=== PATIENT | female | born 1940 | race Caucasian/White ===

== ENCOUNTER 2017-04-16 08:43 | Inpatient (IN) ==
[2017-04-16] MEDS ORDERED: ONDANSETRON 4 MG/2 ML VIAL IV STA (09:48)
[2017-04-16] MEDS ORDERED: SODIUM CHLORIDE 0.9% 1,000 ML IV STA (09:48)
[2017-04-16] MEDS ORDERED: HYDROmorphone 2 MG/1 ML VIAL IV STA (09:48)
[2017-04-16] MEDS ORDERED: HYDROmorphone 2 MG/1 ML VIAL ONE (09:55)
[2017-04-16] MEDS ORDERED: ONDANSETRON 4 MG/2 ML VIAL ONE (09:55)
[2017-04-16 11:27] LABS: Basophils # 0.1 10*3/uL (0.0-0.2); Eosinophils # 0.4 10*3/uL (0.0-0.87); Eosinophils % 5.1 % (0.00-10.9); Hematocrit 40.8 VOL% (35.7-47.0); Hemoglobin 13.8 GM/DL (12.0-16.0); Immature Granulocytes % 0.6 %; Immature Granulocytes Absolute 0.04 #; Lymphocytes # 2.2 10*3/uL (1.4-4.0); Lymphocytes % 30.8 % (21.3-54.2); Mean Corpuscular HGB Conc 33.8 GM/DL (32-36); Mean Corpuscular Hemoglobin 30 PG (27-34); Mean Corpuscular Volume 89.7 FL (87-102); Monocytes # 0.6 10*3/uL (0.11-0.8); Monocytes % 8.2 % (1.7-12.7); Neutrophils # 3.8 10*3/uL (1.4-7.4); Neutrophils % 54.3 % (38.7-73.9); Platelet Count 274 T/CUMM (130-400); Red Blood Count 4.55 MC/CUMM (3.8-5.5); Red Cell Distribution Width 13.6 % (9.3-17.3); White Blood Count 7.1 T/CUMM (4-12)
[2017-04-16 11:40] LABS: Bilirubin,Total 0.7 MG/DL (0.2-1.0); Calcium 9.6 MG/DL (8.5-10.1); Osmolality,Calculated 277.7 MOS/KG (273-304); Potassium 3.7 MMOL/L (3.5-5.1); Total Protein 7.5 G/DL (6.4-8.3)
[2017-04-16] MEDS ORDERED: ONDANSETRON 4 MG/2 ML VIAL IV PRN (12:46)
[2017-04-16] MEDS ORDERED: GLUCAGON 1 MG VIAL IM PRN (12:51)
[2017-04-16] MEDS ORDERED: DEXTROSE 50% 25 GM/50 ML VIAL IV PRN (12:51)
[2017-04-16] MEDS: SODIUM CHLORIDE 0.9% 1,000 ML IV SCH ×3 (14:23→22:06)
[2017-04-16 15:14] LABS: Apearance,Urine CLEAR (Clear); Bilirubin,Urine Negative (Negative); Blood, Urine Negative (Negative); Glucose,Urine (UA) Negative (Negative); Ketones,Urine Negative (Negative); Mucus,Urine Occasional /LPF (Occasional); Nitrite,Urine Negative (Negative); Protein,Urine Negative; RBC,Urine <1 /HPF (0-4); Urine Color Yellow (Yellow); Urine Specific Gravity 1.008 (1.001-1.035); Urine Urobilinogen < 2.0 EU/DL (0.2-1.0); WBC,Urine 4 /HPF (0-6)
[2017-04-16] MEDS: HYDROmorphone 2 MG/1 ML VIAL IV PRN ×2 (16:35→22:04)
[2017-04-16] MEDS: INSULIN LISPRO 100 UNIT/ML SUBCUT SCH ×2 (16:35→20:52)
[2017-04-16] MEDS ORDERED: LEVOFLOXACIN INJ 500 MG in PREMIX 1 EACH IV ONE (17:30)
[2017-04-17] MEDS: SODIUM CHLORIDE 0.9% 1,000 ML IV SCH ×4 (03:30→16:58)
[2017-04-17 05:28] LABS: Basophils % 0.7 % (0.0-0.8); Eosinophils # 0.2 10*3/uL (0.0-0.87); Eosinophils % 3.6 % (0.00-10.9); Hematocrit 36.2 VOL% (35.7-47.0); Hemoglobin 11.8 GM/DL (12.0-16.0); Immature Granulocytes % 0.8 %; Immature Granulocytes Absolute 0.05 #; Lymphocytes # 1.4 10*3/uL (1.4-4.0); Lymphocytes % 22.9 % (21.3-54.2); Mean Corpuscular HGB Conc 32.6 GM/DL (32-36); Mean Corpuscular Hemoglobin 30 PG (27-34); Mean Corpuscular Volume 91.6 FL (87-102); Mean Platelet Volume 11.4 FL (9.6-12.0); Monocytes # 0.4 10*3/uL (0.11-0.8); Monocytes % 6.1 % (1.7-12.7); Neutrophils % 65.9 % (38.7-73.9); Platelet Count 225 T/CUMM (130-400); Red Blood Count 3.95 MC/CUMM (3.8-5.5); Red Cell Distribution Width 13.5 % (9.3-17.3); White Blood Count 6.1 T/CUMM (4-12)
[2017-04-17 05:49] LABS: PT Patient Result 10.4 SECS
[2017-04-17 06:15] LABS: Risk Ratio 2.45; VLDL CHOLESTEROL 21.6 MG/DL
[2017-04-17 06:16] LABS: Albumin 3.1 G/DL (3.4-5.0); Bilirubin,Total 0.8 MG/DL (0.2-1.0); Calcium 7.9 MG/DL (8.5-10.1); Magnesium 1.7 MG/DL (1.8-2.4); Osmolality,Calculated 278.3 MOS/KG (273-304); Potassium 4.2 MMOL/L (3.5-5.1); Total Protein 5.3 G/DL (6.4-8.3)
[2017-04-17] MEDS: INSULIN LISPRO 100 UNIT/ML SUBCUT SCH ×4 (08:05→21:08)
[2017-04-17] MEDS: HYDROmorphone 2 MG/1 ML VIAL IV PRN (08:08)
[2017-04-17] MEDS ORDERED: PANTOPRAZOLE 40 MG VIAL IV SCH (09:00)
[2017-04-17] MEDS ORDERED: MAGNESIUM SULF RIDER 2 GM in PREMIX 1 EACH IV PRN (10:19)
[2017-04-17] MEDS: LINACLOTIDE 145 MCG CAPSULE PO SCH (11:55)
[2017-04-17] MEDS: traMADol 50 MG TABLET PO PRN ×2 (13:32→21:48)
[2017-04-17] MEDS: LEVOFLOXACIN INJ 250 MG in PREMIX 1 EACH IV SCH (16:55)
[2017-04-17] MEDS: PANTOPRAZOLE 40 MG VIAL IV SCH (20:56)
[2017-04-18] MEDS: SODIUM CHLORIDE 0.9% 1,000 ML IV SCH ×4 (00:19→15:00)
[2017-04-18] MEDS: traMADol 50 MG TABLET PO PRN (03:48)
[2017-04-18 06:20] LABS: Basophils % 0.3 % (0.0-0.8); Eosinophils # 0.3 10*3/uL (0.0-0.87); Eosinophils % 4.4 % (0.00-10.9); Hemoglobin 10.8 GM/DL (12.0-16.0); Immature Granulocytes % 0.6 %; Immature Granulocytes Absolute 0.04 #; Lymphocytes # 1.5 10*3/uL (1.4-4.0); Lymphocytes % 21.7 % (21.3-54.2); Mean Corpuscular HGB Conc 32.7 GM/DL (32-36); Mean Corpuscular Hemoglobin 30 PG (27-34); Mean Corpuscular Volume 91.4 FL (87-102); Mean Platelet Volume 11.6 FL (9.6-12.0); Monocytes # 0.6 10*3/uL (0.11-0.8); Neutrophils # 4.5 10*3/uL (1.4-7.4); Platelet Count 208 T/CUMM (130-400); Red Blood Count 3.61 MC/CUMM (3.8-5.5); Red Cell Distribution Width 13.7 % (9.3-17.3)
[2017-04-18 06:52] LABS: Bilirubin,Total 0.8 MG/DL (0.2-1.0); Magnesium 1.8 MG/DL (1.8-2.4); Osmolality,Calculated 278.3 MOS/KG (273-304); Potassium 4.2 MMOL/L (3.5-5.1); Total Protein 5.3 G/DL (6.4-8.3)
[2017-04-18] MEDS ORDERED: INFLUENZA VIRUS VACCINE 0.5 ML SYRINGE IM ONE (09:00)
[2017-04-18] MEDS: LINACLOTIDE 145 MCG CAPSULE PO SCH (09:16)
[2017-04-18] MEDS: PANTOPRAZOLE 40 MG VIAL IV SCH ×2 (09:17→20:46)
[2017-04-18] MEDS: INSULIN LISPRO 100 UNIT/ML SUBCUT SCH ×4 (09:17→20:47)
[2017-04-18] MEDS ORDERED: BUTALBITAL/ACETAMIN/CAFFEINE 50-325-40 MG TABLET PO PRN ×2 (14:30)
[2017-04-18] MEDS: LEVOFLOXACIN INJ 250 MG in PREMIX 1 EACH IV SCH (18:42)
[2017-04-18] MEDS: CIPROFLOXACIN INJ 400 MG in PREMIX 1 EACH IV SCH (18:43)
[2017-04-18] MEDS: ROSUVASTATIN 10 MG TABLET PO SCH (20:46)
[2017-04-18] MEDS: MAGNESIUM CHLORIDE 64 MG TABLET PO SCH (20:46)
[2017-04-19] MEDS: SODIUM CHLORIDE 0.9% 1,000 ML IV SCH ×3 (09:26→23:51)
[2017-04-19] MEDS: CIPROFLOXACIN INJ 400 MG in PREMIX 1 EACH IV SCH ×2 (09:27→17:09)
[2017-04-19] MEDS: INSULIN LISPRO 100 UNIT/ML SUBCUT SCH ×4 (09:27→21:09)
[2017-04-19] MEDS ORDERED: PROPOFOL 200 MG/20 ML VIAL IV ONE (11:42)
[2017-04-19] MEDS ORDERED: LIDOCAINE 1% 5 ML VIAL ONE (11:42)
[2017-04-19] MEDS: PANTOPRAZOLE 40 MG VIAL IV SCH ×2 (12:02→21:06)
[2017-04-19] MEDS: LINACLOTIDE 145 MCG CAPSULE PO SCH (12:02)
[2017-04-19] MEDS: VALSARTAN/HCTZ 160-12.5 MG TABLET PO SCH (12:02)
[2017-04-19] MEDS: MAGNESIUM CHLORIDE 64 MG TABLET PO SCH ×2 (12:03→21:06)
[2017-04-19] MEDS ORDERED: MIDAZOLAM 2 MG/2 ML VIAL ONE (13:30)
[2017-04-19] MEDS: ROSUVASTATIN 10 MG TABLET PO SCH (21:06)
[2017-04-20] MEDS: CIPROFLOXACIN INJ 400 MG in PREMIX 1 EACH IV SCH (05:20)
[2017-04-20] MEDS: INSULIN LISPRO 100 UNIT/ML SUBCUT SCH ×2 (08:57→12:10)
[2017-04-20] MEDS: PANTOPRAZOLE 40 MG VIAL IV SCH (08:57)
[2017-04-20] MEDS: MAGNESIUM CHLORIDE 64 MG TABLET PO SCH (08:57)
[2017-04-20] MEDS: VALSARTAN/HCTZ 160-12.5 MG TABLET PO SCH (08:57)
[2017-04-20] MEDS: LINACLOTIDE 145 MCG CAPSULE PO SCH (09:00)
[2017-04-20 12:03] VITALS: BP 154/66
== END 2017-04-20 15:20 | disposition home or self-care (01) | DRG 439 ==
LOC: N.ED 08:43 → SUATTDRO 12:03 → N.EDINP 12:03 → N.5E 13:35
PROVIDERS: ADMIT Hospitalist; ATTEND Hospitalist

== ENCOUNTER 2017-09-21 05:35 | Inpatient (IN) ==
[2017-09-15 15:26] LABS: Basophils # 0.1 10*3/uL (0.0-0.2); Basophils % 0.8 % (0.0-0.8); Eosinophils # 0.3 10*3/uL (0.0-0.87); Eosinophils % 4.4 % (0.00-10.9); Hematocrit 42.2 VOL% (35.7-47.0); Hemoglobin 13.5 GM/DL (12.0-16.0); Immature Granulocytes % 0.6 %; Immature Granulocytes Absolute 0.04 #; Lymphocytes # 1.7 10*3/uL (1.4-4.0); Lymphocytes % 25.9 % (21.3-54.2); Mean Corpuscular Hemoglobin 29 PG (27-34); Mean Corpuscular Volume 90.8 FL (87-102); Mean Platelet Volume 11.5 FL (9.6-12.0); Monocytes # 0.6 10*3/uL (0.11-0.8); Monocytes % 8.6 % (1.7-12.7); Neutrophils # 3.8 10*3/uL (1.4-7.4); Neutrophils % 59.7 % (38.7-73.9); Platelet Count 278 T/CUMM (130-400); Red Blood Count 4.65 MC/CUMM (3.8-5.5); Red Cell Distribution Width 14.3 % (9.3-17.3); White Blood Count 6.4 T/CUMM (4-12)
[2017-09-15 16:00] LABS: Albumin 4.1 G/DL (3.4-5.0); Bilirubin,Total 0.8 MG/DL (0.2-1.0); Osmolality,Calculated 284.8 MOS/KG (273-304); Potassium 4.8 MMOL/L (3.5-5.1)
[2017-09-21] MEDS ORDERED: LEVOFLOXACIN 500 MG TABLET PO ONE (06:00)
[2017-09-21] MEDS ORDERED: GENTAMICIN INJ 120 MG in PREMIX 1 EACH IV ONE (06:00)
[2017-09-21] MEDS ORDERED: cefTRIAXone 1,000 MG VIAL ONE ×2 (06:45→06:48)
[2017-09-21] MEDS ORDERED: cefTRIAXone 1,000 MG in SODIUM CHLORIDE 0.9% 100 ML IV ONE (06:48)
[2017-09-21] MEDS: LACTATED RINGERS 1,000 ML IV SCH (06:54)
[2017-09-21] MEDS ORDERED: cefTRIAXone 1,000 MG in SYRINGE 1 EACH IV ONE (07:00)
[2017-09-21 08:28] LABS: Apearance,Urine CLEAR (Clear); Bilirubin,Urine Negative (Negative); Blood, Urine Negative (Negative); Glucose,Urine (UA) Negative (Negative); Ketones,Urine Negative (Negative); Nitrite,Urine Negative (Negative); Protein,Urine Negative; RBC,Urine <1 /HPF (0-4); Urine Specific Gravity 1.004 (1.001-1.035); Urine Urobilinogen < 2.0 EU/DL (0.2-1.0); WBC,Urine <1 /HPF (0-6)
[2017-09-21 08:31] LABS: Urine Color Amber (Yellow)
[2017-09-21] MEDS: MORPHINE 10 MG/1 ML VIAL IV PRN ×3 (11:40→12:05)
[2017-09-21] MEDS ORDERED: MORPHINE 10 MG/1 ML VIAL ONE (11:41)
[2017-09-21] MEDS ORDERED: PROMETHAZINE INJ 25 MG in SODIUM CHLORIDE 0.9% 50 ML IV PRN (11:49)
[2017-09-21] MEDS ORDERED: NALOXONE 0.4 MG/ML VIAL IV PRN (12:17)
[2017-09-21] MEDS ORDERED: SEVOFLURANE 1 UNIT/15 MINUTE INH ONE (12:24)
[2017-09-21] MEDS ORDERED: PROPOFOL 200 MG/20 ML VIAL IV ONE (12:24)
[2017-09-21] MEDS ORDERED: MIDAZOLAM 2 MG/2 ML VIAL ONE (12:25)
[2017-09-21] MEDS ORDERED: ePHEDrine 50 MG/ML AMP ONE (12:25)
[2017-09-21] MEDS ORDERED: LACTATED RINGERS 1,000 ML IV ONE (12:25)
[2017-09-21] MEDS ORDERED: ONDANSETRON 4 MG/2 ML VIAL ONE (12:25)
[2017-09-21] MEDS ORDERED: fentaNYL 100 MCG/2 ML VIAL ONE (12:25)
[2017-09-21] MEDS ORDERED: PHENYLEPHRINE 1 MG/10 ML SYRINGE IV ONE (12:25)
[2017-09-21] MEDS ORDERED: ROCURONIUM 100 MG/10 ML VIAL IV ONE (12:25)
[2017-09-21] MEDS: MORPHINE PCA 30 MG/30 ML SYRINGE IV SCH (12:30)
[2017-09-21 12:35] LABS: Basophils % 0.3 % (0.0-0.8); Eosinophils # 0.1 10*3/uL (0.0-0.87); Hematocrit 38.7 VOL% (35.7-47.0); Hemoglobin 12.9 GM/DL (12.0-16.0); Immature Granulocytes % 0.8 %; Immature Granulocytes Absolute 0.08 #; Lymphocytes # 1.3 10*3/uL (1.4-4.0); Lymphocytes % 12.8 % (21.3-54.2); Mean Corpuscular HGB Conc 33.3 GM/DL (32-36); Mean Corpuscular Hemoglobin 30 PG (27-34); Mean Corpuscular Volume 89.2 FL (87-102); Monocytes # 0.4 10*3/uL (0.11-0.8); Monocytes % 4.2 % (1.7-12.7); Neutrophils # 8.4 10*3/uL (1.4-7.4); Neutrophils % 80.9 % (38.7-73.9); Platelet Count 221 T/CUMM (130-400); Red Blood Count 4.34 MC/CUMM (3.8-5.5); Red Cell Distribution Width 13.6 % (9.3-17.3); White Blood Count 10.3 T/CUMM (4-12)
[2017-09-21 13:04] LABS: Calcium 8.7 MG/DL (8.5-10.1); Osmolality,Calculated 268.8 MOS/KG (273-304); Potassium 4.2 MMOL/L (3.5-5.1)
[2017-09-21] MEDS ORDERED: GLUCAGON 1 MG VIAL IM PRN (13:32)
[2017-09-21] MEDS ORDERED: diphenhydrAMINE 50 MG/1 ML VIAL IV PRN (13:32)
[2017-09-21] MEDS ORDERED: DEXTROSE 50% 25 GM/50 ML VIAL IV PRN (13:32)
[2017-09-21] MEDS ORDERED: ALBUTEROL/IPRATROPIUM 3 ML NEB RESP TX PRN (13:32)
[2017-09-21] MEDS: SODIUM CHLORIDE 0.9% 1,000 ML IV SCH ×2 (14:03→23:32)
[2017-09-21] MEDS ORDERED: MAGNESIUM SULF RIDER 2 GM in PREMIX 1 EACH IV PRN (14:59)
[2017-09-21] MEDS ORDERED: MAGNESIUM SULF RIDER 4 GM in PREMIX 1 EACH IV PRN (14:59)
[2017-09-21] MEDS: FAMOTIDINE 20 MG/2 ML VIAL IV SCH (15:49)
[2017-09-21] MEDS: INSULIN REGULAR 100 UNIT/ML SUBCUT SCH ×2 (16:38→22:13)
[2017-09-21] MEDS: ROSUVASTATIN 10 MG TABLET PO SCH (22:13)
[2017-09-22] MEDS: SODIUM CHLORIDE 0.9% 1,000 ML IV SCH ×5 (05:34→22:37)
[2017-09-22 06:01] LABS: Basophils % 0.2 % (0.0-0.8); Eosinophils # 0.1 10*3/uL (0.0-0.87); Eosinophils % 0.8 % (0.00-10.9); Hematocrit 36.4 VOL% (35.7-47.0); Hemoglobin 12.1 GM/DL (12.0-16.0); Immature Granulocytes % 0.8 %; Immature Granulocytes Absolute 0.07 #; Lymphocytes # 1.3 10*3/uL (1.4-4.0); Lymphocytes % 14.2 % (21.3-54.2); Mean Corpuscular HGB Conc 33.2 GM/DL (32-36); Mean Corpuscular Hemoglobin 30 PG (27-34); Mean Corpuscular Volume 89.4 FL (87-102); Mean Platelet Volume 11.9 FL (9.6-12.0); Monocytes # 0.6 10*3/uL (0.11-0.8); Monocytes % 6.6 % (1.7-12.7); Neutrophils # 6.9 10*3/uL (1.4-7.4); Neutrophils % 77.4 % (38.7-73.9); Platelet Count 234 T/CUMM (130-400); Red Blood Count 4.07 MC/CUMM (3.8-5.5); Red Cell Distribution Width 13.8 % (9.3-17.3)
[2017-09-22] MEDS: LACTATED RINGERS 1,000 ML IV SCH (06:22)
[2017-09-22 06:32] LABS: Osmolality,Calculated 269.5 MOS/KG (273-304); Potassium 4.1 MMOL/L (3.5-5.1)
[2017-09-22 06:35] LABS: Calcium 8.2 MG/DL (8.5-10.1); Osmolality,Calculated 271.4 MOS/KG (273-304); Potassium 4.3 MMOL/L (3.5-5.1)
[2017-09-22 06:38] LABS: Risk Ratio 1.98
[2017-09-22] MEDS: ONDANSETRON 4 MG/2 ML VIAL IV PRN (06:43)
[2017-09-22] MEDS ORDERED: cefTRIAXone 1,000 MG in SYRINGE 1 EACH IV SCH (09:00)
[2017-09-22] MEDS: VALSARTAN/HCTZ 160-12.5 MG TABLET PO SCH (09:34)
[2017-09-22] MEDS: CARVEDILOL 3.125 MG TABLET PO SCH (09:34)
[2017-09-22] MEDS: SIMETHICONE CHEW 80 MG TABLET PO PRN ×2 (09:46→22:48)
[2017-09-22] MEDS ORDERED: ALVIMOPAN 12 MG CAPSULE PO SCH (11:00)
[2017-09-22] MEDS: INSULIN REGULAR 100 UNIT/ML SUBCUT SCH ×4 (12:36→22:36)
[2017-09-22] MEDS: DOCUSATE SODIUM 100 MG CAPSULE PO SCH ×2 (12:45→22:34)
[2017-09-22] MEDS: POLYETHYLENE GLYCOL POWDER 17 GM PACK PO SCH ×2 (12:47→22:33)
[2017-09-22] MEDS: ALBUTEROL/IPRATROPIUM 3 ML NEB RESP TX SCH ×2 (13:54→19:47)
[2017-09-22] MEDS: FAMOTIDINE 20 MG/2 ML VIAL IV SCH (14:07)
[2017-09-22] MEDS ORDERED: ALUMINUM/MAGNES/SIMETH MAX STR 30 ML UDCUP PO PRN (15:44)
[2017-09-22] MEDS: ROSUVASTATIN 10 MG TABLET PO SCH (22:33)
[2017-09-22] MEDS: MORPHINE PCA 30 MG/30 ML SYRINGE IV SCH (22:34)
[2017-09-23] MEDS: ALBUTEROL/IPRATROPIUM 3 ML NEB RESP TX SCH ×4 (00:26→19:29)
[2017-09-23] MEDS: INSULIN REGULAR 100 UNIT/ML SUBCUT SCH ×4 (09:09→22:32)
[2017-09-23] MEDS: VALSARTAN/HCTZ 160-12.5 MG TABLET PO SCH (09:16)
[2017-09-23] MEDS: CARVEDILOL 3.125 MG TABLET PO SCH (09:16)
[2017-09-23] MEDS: DOCUSATE SODIUM 100 MG CAPSULE PO SCH ×2 (09:16→22:16)
[2017-09-23] MEDS: ACETAMINOPHEN 325 MG TABLET PO SCH ×3 (09:16→22:16)
[2017-09-23] MEDS: POLYETHYLENE GLYCOL POWDER 17 GM PACK PO SCH ×2 (09:17→22:17)
[2017-09-23] MEDS ORDERED: HYDROCORTISONE 2.5% CREAM 30 GM TUBE TOP PRN (12:45)
[2017-09-23] MEDS ORDERED: cefTRIAXone 1,000 MG in SODIUM CHLORIDE 0.9% 100 ML IV ONE (12:57)
[2017-09-23] MEDS: FAMOTIDINE 20 MG/2 ML VIAL IV SCH (13:50)
[2017-09-23] MEDS: MEPERIDINE 25 MG/1 ML VIAL IV PRN (21:56)
[2017-09-23] MEDS: ONDANSETRON 4 MG/2 ML VIAL IV PRN (21:56)
[2017-09-23] MEDS: ROSUVASTATIN 10 MG TABLET PO SCH (22:15)
[2017-09-24] MEDS: ALBUTEROL/IPRATROPIUM 3 ML NEB RESP TX SCH ×2 (01:09→07:40)
[2017-09-24] MEDS: ONDANSETRON 4 MG/2 ML VIAL IV PRN (04:59)
[2017-09-24] MEDS: ACETAMINOPHEN 325 MG TABLET PO SCH ×2 (04:59→11:04)
[2017-09-24] MEDS: MEPERIDINE 25 MG/1 ML VIAL IV PRN ×2 (05:00→09:06)
[2017-09-24 06:42] LABS: Basophils % 0.4 % (0.0-0.8); Eosinophils # 0.3 10*3/uL (0.0-0.87); Eosinophils % 4.5 % (0.00-10.9); Hematocrit 31.4 VOL% (35.7-47.0); Immature Granulocytes % 0.6 %; Immature Granulocytes Absolute 0.04 #; Lymphocytes # 1.4 10*3/uL (1.4-4.0); Lymphocytes % 19.9 % (21.3-54.2); Mean Corpuscular HGB Conc 32.2 GM/DL (32-36); Mean Corpuscular Hemoglobin 30 PG (27-34); Mean Corpuscular Volume 92.4 FL (87-102); Mean Platelet Volume 11.4 FL (9.6-12.0); Monocytes # 0.7 10*3/uL (0.11-0.8); Monocytes % 9.4 % (1.7-12.7); Neutrophils # 4.5 10*3/uL (1.4-7.4); Neutrophils % 65.2 % (38.7-73.9); Platelet Count 211 T/CUMM (130-400); Red Cell Distribution Width 14.2 % (9.3-17.3); White Blood Count 6.9 T/CUMM (4-12)
[2017-09-24 06:55] LABS: Hemoglobin 10.1 GM/DL (12.0-16.0)
[2017-09-24 07:17] LABS: Calcium 7.8 MG/DL (8.5-10.1); Osmolality,Calculated 280.5 MOS/KG (273-304); Potassium 4.1 MMOL/L (3.5-5.1)
[2017-09-24] MEDS ORDERED: SODIUM CHLORIDE 0.9% 1,000 ML IV SCH (08:30)
[2017-09-24] MEDS: INSULIN REGULAR 100 UNIT/ML SUBCUT SCH ×2 (09:06→12:01)
[2017-09-24] MEDS: DOCUSATE SODIUM 100 MG CAPSULE PO SCH (11:03)
[2017-09-24] MEDS: VALSARTAN/HCTZ 160-12.5 MG TABLET PO SCH (11:03)
[2017-09-24] MEDS: CARVEDILOL 3.125 MG TABLET PO SCH (11:03)
[2017-09-24] MEDS: POLYETHYLENE GLYCOL POWDER 17 GM PACK PO SCH (11:04)
[2017-09-24 13:02] VITALS: BP 114/55
[2017-09-24] MEDS: FAMOTIDINE 20 MG/2 ML VIAL IV SCH (14:05)
== END 2017-09-24 15:00 | disposition home or self-care, planned readmission (81) | DRG 694 ==
LOC: N.RAD 05:35 → N.SDSINP 05:40 → N.5E 08:14
PROVIDERS: ADMIT Surgery; ATTEND Surgery

== ENCOUNTER 2017-09-27 12:46 | Inpatient (IN) ==
[2017-09-27] MEDS ORDERED: ONDANSETRON 4 MG/2 ML VIAL IV PRN (13:51)
[2017-09-27] MEDS ORDERED: MORPHINE 2 MG/1 ML SYRINGE IV PRN (13:51)
[2017-09-27] MEDS ORDERED: diphenhydrAMINE 50 MG/1 ML VIAL IV PRN (13:51)
[2017-09-27] MEDS ORDERED: HYDROCORTISONE 2.5% CREAM 30 GM TUBE TOP PRN (13:51)
[2017-09-27] MEDS ORDERED: cefTRIAXone 1,000 MG in SYRINGE 1 EACH IV ONE (13:51)
[2017-09-27] MEDS ORDERED: GLUCAGON 1 MG VIAL IM PRN (13:51)
[2017-09-27] MEDS ORDERED: DEXTROSE 50% 25 GM/50 ML VIAL IV PRN (13:51)
[2017-09-27] MEDS ORDERED: MORPHINE 10 MG/1 ML VIAL IV PRN (14:00)
[2017-09-27 15:04] LABS: Basophils # 0.1 10*3/uL (0.0-0.2); Basophils % 0.6 % (0.0-0.8); Eosinophils # 0.3 10*3/uL (0.0-0.87); Eosinophils % 4.1 % (0.00-10.9); Hemoglobin 12.8 GM/DL (12.0-16.0); Immature Granulocytes % 0.6 %; Immature Granulocytes Absolute 0.05 #; Lymphocytes # 1.6 10*3/uL (1.4-4.0); Lymphocytes % 20.7 % (21.3-54.2); Mean Corpuscular HGB Conc 32.8 GM/DL (32-36); Mean Corpuscular Hemoglobin 30 PG (27-34); Mean Corpuscular Volume 90.1 FL (87-102); Monocytes # 0.5 10*3/uL (0.11-0.8); Monocytes % 6.7 % (1.7-12.7); Neutrophils # 5.2 10*3/uL (1.4-7.4); Neutrophils % 67.3 % (38.7-73.9); Platelet Count 339 T/CUMM (130-400); Red Blood Count 4.33 MC/CUMM (3.8-5.5); Red Cell Distribution Width 13.7 % (9.3-17.3); White Blood Count 7.8 T/CUMM (4-12)
[2017-09-27 15:19] LABS: Calcium 9.1 MG/DL (8.5-10.1); Osmolality,Calculated 271.1 MOS/KG (273-304); Potassium 3.9 MMOL/L (3.5-5.1)
[2017-09-27] MEDS: ACETAMINOPHEN 325 MG TABLET PO SCH ×2 (16:21→21:33)
[2017-09-27] MEDS: SODIUM CHLORIDE 0.9% 1,000 ML IV SCH (16:21)
[2017-09-27] MEDS: INSULIN REGULAR 100 UNIT/ML SUBCUT SCH ×2 (16:28→21:30)
[2017-09-27] MEDS: ROSUVASTATIN 10 MG TABLET PO SCH (21:31)
[2017-09-27] MEDS: FAMOTIDINE 20 MG TABLET PO SCH (21:31)
[2017-09-27] MEDS: DOCUSATE SODIUM 100 MG CAPSULE PO SCH (21:31)
[2017-09-28] MEDS: ACETAMINOPHEN 325 MG TABLET PO SCH ×4 (02:21→21:18)
[2017-09-28] MEDS ORDERED: cefTRIAXone 1,000 MG in SYRINGE 1 EACH IV ONE ×2 (06:00→06:30)
[2017-09-28] MEDS: INSULIN REGULAR 100 UNIT/ML SUBCUT SCH ×4 (08:08→21:19)
[2017-09-28] MEDS: DOCUSATE SODIUM 100 MG CAPSULE PO SCH ×2 (08:08→21:18)
[2017-09-28] MEDS: FAMOTIDINE 20 MG TABLET PO SCH ×2 (08:16→21:25)
[2017-09-28] MEDS: VALSARTAN/HCTZ 160-12.5 MG TABLET PO SCH (08:16)
[2017-09-28] MEDS: CARVEDILOL 3.125 MG TABLET PO SCH (08:16)
[2017-09-28] MEDS: SODIUM CHLORIDE 0.9% 1,000 ML IV SCH (11:36)
[2017-09-28] MEDS ORDERED: MIDAZOLAM 2 MG/2 ML VIAL ONE (12:11)
[2017-09-28] MEDS ORDERED: BUPIVACAINE MPF 0.25% /EPI 30 ML VIAL ONE (14:45)
[2017-09-28] MEDS ORDERED: SODIUM CHLORIDE 0.9% 1,000 ML IV SCH (15:30)
[2017-09-28] MEDS ORDERED: NALOXONE 0.4 MG/ML VIAL IV PRN (15:32)
[2017-09-28] MEDS ORDERED: MORPHINE PCA 30 MG/30 ML SYRINGE IV ONE (15:36)
[2017-09-28] MEDS: MORPHINE PCA 30 MG/30 ML SYRINGE IV SCH (15:39)
[2017-09-28] MEDS ORDERED: PROPOFOL 200 MG/20 ML VIAL IV ONE (15:41)
[2017-09-28] MEDS ORDERED: ACETAMINOPHEN 1,000 MG/100 ML VIAL IV ONE (15:42)
[2017-09-28] MEDS ORDERED: ePHEDrine 50 MG/ML AMP ONE (15:42)
[2017-09-28] MEDS ORDERED: GLYCOPYRROLATE 0.4 MG/2 ML VIAL ONE (15:42)
[2017-09-28] MEDS ORDERED: ONDANSETRON 4 MG/2 ML VIAL ONE (15:42)
[2017-09-28] MEDS ORDERED: ROCURONIUM 100 MG/10 ML VIAL IV ONE (15:42)
[2017-09-28] MEDS ORDERED: NEOSTIGMINE 10 MG/10 ML VIAL ONE (15:42)
[2017-09-28] MEDS ORDERED: SODIUM CHLORIDE 0.9% 100 ML IV ONE (15:42)
[2017-09-28] MEDS ORDERED: SODIUM CHLORIDE 0.9% 1,000 ML IV ONE (15:42)
[2017-09-28] MEDS ORDERED: MINERAL OIL/PETROLATUM OPH OINT 3.5 GM TUBE ONE (15:42)
[2017-09-28] MEDS ORDERED: SEVOFLURANE 1 UNIT/15 MINUTE INH ONE (15:43)
[2017-09-28 15:44] LABS: Basophils % 0.7 % (0.0-0.8); Eosinophils # 0.4 10*3/uL (0.0-0.87); Eosinophils % 6.2 % (0.00-10.9); Hematocrit 35.4 VOL% (35.7-47.0); Hemoglobin 11.6 GM/DL (12.0-16.0); Immature Granulocytes % 0.8 %; Immature Granulocytes Absolute 0.05 #; Lymphocytes # 1.5 10*3/uL (1.4-4.0); Lymphocytes % 24.8 % (21.3-54.2); Mean Corpuscular HGB Conc 32.8 GM/DL (32-36); Mean Corpuscular Hemoglobin 30 PG (27-34); Mean Corpuscular Volume 90.3 FL (87-102); Mean Platelet Volume 10.2 FL (9.6-12.0); Monocytes # 0.5 10*3/uL (0.11-0.8); Monocytes % 7.6 % (1.7-12.7); Neutrophils # 3.6 10*3/uL (1.4-7.4); Neutrophils % 59.9 % (38.7-73.9); Platelet Count 296 T/CUMM (130-400); Red Blood Count 3.92 MC/CUMM (3.8-5.5); Red Cell Distribution Width 13.9 % (9.3-17.3)
[2017-09-28 16:13] LABS: Calcium 7.9 MG/DL (8.5-10.1); Osmolality,Calculated 275.7 MOS/KG (273-304); Potassium 3.7 MMOL/L (3.5-5.1)
[2017-09-28] MEDS ORDERED: MAGNESIUM SULF RIDER 2 GM in PREMIX 1 EACH IV PRN (17:34)
[2017-09-28] MEDS ORDERED: MAGNESIUM SULF RIDER 4 GM in PREMIX 1 EACH IV PRN (17:34)
[2017-09-28] MEDS: POTASSIUM CHLORIDE RIDER 10 MEQ in PREMIX 1 EACH IV SCH ×2 (18:28→19:43)
[2017-09-28] MEDS: ROSUVASTATIN 10 MG TABLET PO SCH (21:25)
[2017-09-29] MEDS: ACETAMINOPHEN 325 MG TABLET PO SCH ×4 (01:05→20:25)
[2017-09-29] MEDS: SODIUM CHLORIDE 0.9% 1,000 ML IV SCH ×3 (05:24→17:08)
[2017-09-29 07:01] LABS: Basophils % 0.5 % (0.0-0.8); Eosinophils # 0.4 10*3/uL (0.0-0.87); Eosinophils % 5.4 % (0.00-10.9); Hematocrit 34.4 VOL% (35.7-47.0); Hemoglobin 11.1 GM/DL (12.0-16.0); Immature Granulocytes % 0.6 %; Immature Granulocytes Absolute 0.05 #; Lymphocytes # 1.4 10*3/uL (1.4-4.0); Lymphocytes % 17.6 % (21.3-54.2); Mean Corpuscular HGB Conc 32.3 GM/DL (32-36); Mean Corpuscular Hemoglobin 30 PG (27-34); Mean Corpuscular Volume 91.5 FL (87-102); Mean Platelet Volume 10.2 FL (9.6-12.0); Monocytes # 0.7 10*3/uL (0.11-0.8); Monocytes % 9.1 % (1.7-12.7); Neutrophils # 5.4 10*3/uL (1.4-7.4); Neutrophils % 66.8 % (38.7-73.9); Platelet Count 281 T/CUMM (130-400); Red Blood Count 3.76 MC/CUMM (3.8-5.5); Red Cell Distribution Width 14.3 % (9.3-17.3); White Blood Count 8.1 T/CUMM (4-12)
[2017-09-29 07:33] LABS: Calcium 8.2 MG/DL (8.5-10.1); Osmolality,Calculated 277.4 MOS/KG (273-304); Potassium 4.4 MMOL/L (3.5-5.1)
[2017-09-29] MEDS: INSULIN REGULAR 100 UNIT/ML SUBCUT SCH ×4 (08:02→20:54)
[2017-09-29] MEDS: CARVEDILOL 3.125 MG TABLET PO SCH (09:01)
[2017-09-29] MEDS: DOCUSATE SODIUM 100 MG CAPSULE PO SCH ×3 (09:01→20:25)
[2017-09-29] MEDS: FAMOTIDINE 20 MG TABLET PO SCH ×2 (09:01→20:25)
[2017-09-29] MEDS: VALSARTAN/HCTZ 160-12.5 MG TABLET PO SCH (09:01)
[2017-09-29] MEDS: MORPHINE PCA 30 MG/30 ML SYRINGE IV SCH (15:10)
[2017-09-29] MEDS: POLYETHYLENE GLYCOL POWDER 17 GM PACK PO PRN (18:46)
[2017-09-29] MEDS: ROSUVASTATIN 10 MG TABLET PO SCH (20:24)
[2017-09-30] MEDS: ACETAMINOPHEN 325 MG TABLET PO SCH ×4 (02:37→21:10)
[2017-09-30] MEDS: SODIUM CHLORIDE 0.9% 1,000 ML IV SCH (02:46)
[2017-09-30] MEDS: INSULIN REGULAR 100 UNIT/ML SUBCUT SCH ×4 (07:37→21:42)
[2017-09-30] MEDS: FAMOTIDINE 20 MG TABLET PO SCH ×2 (08:26→21:09)
[2017-09-30] MEDS: VALSARTAN/HCTZ 160-12.5 MG TABLET PO SCH (08:26)
[2017-09-30] MEDS: CARVEDILOL 3.125 MG TABLET PO SCH (08:27)
[2017-09-30] MEDS: DOCUSATE SODIUM 100 MG CAPSULE PO SCH ×2 (08:27→21:09)
[2017-09-30] MEDS: POLYETHYLENE GLYCOL POWDER 17 GM PACK PO PRN (08:30)
[2017-09-30] MEDS: ROSUVASTATIN 10 MG TABLET PO SCH (21:09)
[2017-10-01] MEDS: ACETAMINOPHEN 325 MG TABLET PO SCH ×4 (01:51→21:29)
[2017-10-01 06:53] LABS: Basophils # 0.1 10*3/uL (0.0-0.2); Basophils % 0.8 % (0.0-0.8); Eosinophils # 0.4 10*3/uL (0.0-0.87); Eosinophils % 6.5 % (0.00-10.9); Hematocrit 34.2 VOL% (35.7-47.0); Hemoglobin 11.1 GM/DL (12.0-16.0); Immature Granulocytes % 0.5 %; Immature Granulocytes Absolute 0.03 #; Lymphocytes # 1.8 10*3/uL (1.4-4.0); Lymphocytes % 27.4 % (21.3-54.2); Mean Corpuscular HGB Conc 32.5 GM/DL (32-36); Mean Corpuscular Hemoglobin 29 PG (27-34); Mean Corpuscular Volume 90.2 FL (87-102); Mean Platelet Volume 10.5 FL (9.6-12.0); Monocytes # 0.5 10*3/uL (0.11-0.8); Monocytes % 8.2 % (1.7-12.7); Neutrophils # 3.7 10*3/uL (1.4-7.4); Neutrophils % 56.6 % (38.7-73.9); Platelet Count 288 T/CUMM (130-400); Red Blood Count 3.79 MC/CUMM (3.8-5.5); White Blood Count 6.5 T/CUMM (4-12)
[2017-10-01 07:24] LABS: Calcium 8.4 MG/DL (8.5-10.1); Osmolality,Calculated 283.3 MOS/KG (273-304)
[2017-10-01] MEDS: INSULIN REGULAR 100 UNIT/ML SUBCUT SCH ×4 (08:05→21:30)
[2017-10-01] MEDS: FAMOTIDINE 20 MG TABLET PO SCH ×2 (09:27→21:29)
[2017-10-01] MEDS: DOCUSATE SODIUM 100 MG CAPSULE PO SCH ×2 (09:27→21:30)
[2017-10-01] MEDS: VALSARTAN/HCTZ 160-12.5 MG TABLET PO SCH (09:27)
[2017-10-01] MEDS: CARVEDILOL 3.125 MG TABLET PO SCH (09:28)
[2017-10-01] MEDS: POLYETHYLENE GLYCOL POWDER 17 GM PACK PO PRN (16:34)
[2017-10-01] MEDS: ROSUVASTATIN 10 MG TABLET PO SCH (21:29)
[2017-10-02] MEDS: ACETAMINOPHEN 325 MG TABLET PO SCH ×2 (01:27→08:21)
[2017-10-02] MEDS: INSULIN REGULAR 100 UNIT/ML SUBCUT SCH ×2 (08:11→12:42)
[2017-10-02] MEDS: VALSARTAN/HCTZ 160-12.5 MG TABLET PO SCH (08:20)
[2017-10-02] MEDS: FAMOTIDINE 20 MG TABLET PO SCH (08:20)
[2017-10-02] MEDS: DOCUSATE SODIUM 100 MG CAPSULE PO SCH (08:21)
[2017-10-02] MEDS: CARVEDILOL 3.125 MG TABLET PO SCH (08:21)
[2017-10-02] MEDS: POLYETHYLENE GLYCOL POWDER 17 GM PACK PO PRN (08:30)
[2017-10-02 17:23] VITALS: BP 160/78
[2017-10-04 11:30] LABS: Stone Source Passed Stone
== END 2017-10-02 16:05 | disposition home or self-care (01) | DRG 661 ==
LOC: N.5E → OBSVTOIN 12:46 → EDSTATUS 09-28 11:30 → PREINTOOBSV 09-28 12:46
PROVIDERS: ADMIT Surgery; ATTEND Surgery